=== PATIENT | female | born 1960 | race Caucasian/White ===

== ENCOUNTER 2017-02-15 15:58 | Emergency (ER) | payer OTHER ==
[2017-02-15 16:38] VITALS: BP 116/73
--- NOTE | 2017-02-15 17:18 | UC ---
Shine King Anna, scribed for David Turner MD on 02/15/17 at 1713 . Ear Complaint HPI - HPI Summary HPI Summary: Patient is a 56 y/o [place] [facility] [place] with intermittent left ear pain that began four days ago. Her left ear usually feels more plugged than her right at baseline. She has had some rhinorrhea and congestion. Denies recent cough. The ear pain is exacerbated by self-palpation. She has not been swimming lately, but she takes a shower daily. Patient medications were reviewed this visit. She takes no home medications. - History of Current Complaint Chief Complaint: UCEar Stated Complaint: EAR PAIN Time Seen by Provider: 02/15/17 17:05 Hx Obtained From: Patient Onset/Duration: Lasting Days, Still Present Severity Initially: Moderate Severity Currently: Moderate - Allergies/Home Medications Allergies/Adverse Reactions: Allergies Allergy/AdvReac Type Severity Reaction Status Date / Time Sulfa Antibiotics Allergy Intermediate Rash And Verified 02/26/14 11:25 Itching PMH/Surg Hx/FS Hx/Imm Hx Previously Healthy: Yes Other Cardiovascular History: Denies HTN, PA Cancer History: Other Other Cancer History: Skin CA - Surgical History Surgical History: Yes Surgery Procedure, Year, and Place: hysterectomy. malignant skin ca removed - Social History Alcohol Use: Rare Substance Use Type: None Smoking Status (MU): Former Smoker Review of Systems Constitutional: Negative Skin: Negative Eyes: Negative ENT: Ear Ache, Nasal Discharge, Other - congestion Respiratory: Negative Cardiovascular: Negative Gastrointestinal: Negative Genitourinary: Negative Motor: Negative Neurovascular: Negative Musculoskeletal: Negative Neurological: Negative Psychological: Negative All Other Systems Reviewed And Are Negative: Yes Physical Exam Triage Information Reviewed: Yes Appearance: Well-Appearing, No Pain Distress Vital Signs: Initial Vital Signs Temp 98.6 F 02/15/17 16:35 Pulse 76 02/15/17 16:35 Resp 18 02/15/17 16:35 BP 116/73 02/15/17 16:35 Pulse Ox 100 02/15/17 16:35 Vital Signs Reviewed: Yes Eye Exam: Normal - EOMI, GEORGE ENT: Positive: Pharynx normal - Posterior pharynx benign., Other: - Left TM distorted. Ear canal normal.. Negative: TM red Neck: Positive: Supple, Nontender Respiratory: Positive: Lungs clear, Normal breath sounds, No respiratory distress Cardiovascular: Positive: RRR Musculoskeletal Exam: Normal Musculoskeletal: Positive: Strength Intact, ROM Intact Neurological Exam: Normal - sensory/motor intact, A&O x3 Psychological Exam: Normal - affect/mood appropriate Skin Exam: Normal - wam, dry, skin color displays adequate perfusion Ear Complaint Course/Dx - Differential Dx/Diagnosis Provider Diagnoses: LEFT EAR PAIN WITH SEROUS OTITIS MEDIA AND SINUSITIS. Discharge - Discharge Plan Condition: Stable Disposition: HOME Prescriptions: Amoxicillin/Clavulanate TAB* [Augmentin TAB 875*] 875 mg PO BID #20 tab Patient Education Materials: Serous Otitis Media (ED), Sinusitis (ED) Referrals: Debbie Kessler MD [Primary Care Provider] - Additional Instructions: FOLLOW UP WITH YOUR DOCTOR. RETURN TO THE EMERGENCY DEPARTMENT FOR ANY WORSENING OF YOUR CONDITION OR QUESTIONS OR CONCERNS. The documentation as recorded by the Shine walton Anna accurately reflects the service I personally performed and the decisions made by me, David Turner MD.
== END 2017-02-15 17:31 | disposition home or self-care (01) ==
LOC: UCEAST 15:58
DX: J32.9 Chronic sinusitis, unspecified (principal); H65.92 Unspecified nonsuppurative otitis media, left ear; Z88.3 Allergy status to other anti-infective agents; Z87.891 Personal history of nicotine dependence
CPT/HCPCS: 99212; G0463

== ENCOUNTER 2019-02-16 12:59 | Emergency (ER) | payer OTHER ==
[2019-02-16 13:10] VITALS: BP 134/74
--- NOTE | 2019-02-16 13:25 | UC ---
Throat Pain/Nasal Bruno HPI - HPI Summary HPI Summary: This patient is a 58-year-old female who presents to the urgent care with chief complaint of having sore throat and dysphonia since this morning. Patient denies any difficulty swallowing, denies any swelling of the tongue or lips, and denies any airway compromise. She also reports that she has a dry cough. Denies any fevers or chills. She has no other complaints. - History of Current Complaint Chief Complaint: UCRespiratory Stated Complaint: SORE THROAT Time Seen by Provider: 02/16/19 13:14 Hx Obtained From: Patient Onset/Duration: Gradual Onset Severity: Moderate Pain Intensity: 4 - Allergies/Home Medications Allergies/Adverse Reactions: Allergies Allergy/AdvReac Type Severity Reaction Status Date / Time Sulfa (Sulfonamide Allergy Rash And Verified 02/16/19 13:11 Antibiotics) Itching Home Medications: Home Medications Aspirin/Acetaminophen/Caffeine [Excedrin Extra Strength Caplet] 2 tab PO ONCE PRN 02/16/19 [History Confirmed 02/16/19] PMH/Surg Hx/FS Hx/Imm Hx Previously Healthy: Yes - Surgical History Surgical History: Yes Surgery Procedure, Year, and Place: hysterectomy. malignant skin ca removed - Family History Known Family History: Positive: Non-Contributory - Social History Alcohol Use: Rare Substance Use Type: None Smoking Status (MU): Former Smoker Review of Systems All Other Systems Reviewed And Are Negative: Yes Constitutional: Positive: Negative Skin: Positive: Negative Eyes: Positive: Negative ENT: Positive: Sore Throat Respiratory: Positive: Negative Cardiovascular: Positive: Negative Gastrointestinal: Positive: Negative Genitourinary: Positive: Negative Motor: Positive: Negative Neurovascular: Positive: Negative Musculoskeletal: Positive: Negative Neurological: Positive: Negative Psychological: Positive: Negative Is Patient Immunocompromised?: No Physical Exam - Summary Physical Exam Summary: Vital signs: Reviewed Gen.: Patient is a well developed and nourished female in no acute distress. Patient is sitting comfortably on the stretcher. Head: Normacephalic and atraumatic Eyes: PERRLA, EOMI x2. Ears: Right ear canal and TM WNL Left ear canal and TM WNL Nose Nose with dry mucosa and clear discharge. No sinus tenderness and mouth: Positive pharyngeal erythema with no exudate. Neck: Supple, No lymphadenopathy. No JVD Lungs: CTA B/L CVS: S1 & S2 present. No murmurs appreciated. ABDOMEN: Soft NT w/ positive BS. EXT: FROM x 4 NEURO: A+O X 3. Triage Information Reviewed: Yes Appearance: Well-Appearing, No Pain Distress, Well-Nourished Vital Signs: Initial Vital Signs Temp 98.3 F 02/16/19 13:06 Pulse 72 02/16/19 13:06 Resp 18 02/16/19 13:06 BP 134/74 02/16/19 13:06 Pulse Ox 96 02/16/19 13:06 Throat Pain/Nasal Course/Dx - Course Course Of Treatment: Rapid stress test is negative. Therefore I believe that the patients pharyngitis is secondary to Viral infection. Therefore she was recommended to take ibuprofen and Tylenol for pain or fevers. She was recommended to follow with the primary care physician in the next 2-3 days. Patient understands and agrees. - Differential Dx/Diagnosis Provider Diagnosis: Pharyngitis Discharge - Sign-Out/Discharge Documenting (check all that apply): Patient Departure All imaging exams completed and their final reports reviewed: No Studies - Discharge Plan Condition: Stable Disposition: HOME Prescriptions: Ibuprofen TAB* [Motrin TAB* 600 MG] 600 mg PO Q8H PRN #20 tab PRN Reason: Pain Patient Education Materials: Pharyngitis (ED) Referrals: Debbie Kessler MD [Primary Care Provider] - Additional Instructions: Take Ibuprofen or Tylenol for pain or fever Increase your fluid intake F/U with PCP in the next 2-3 days Return to the if symptoms worsen - Billing Disposition and Condition Condition: STABLE Disposition: Home
== END 2019-02-16 13:40 | disposition home or self-care (01) ==
LOC: UCEAST 12:59
DX: J02.9 Acute pharyngitis, unspecified (principal); Z88.2 Allergy status to sulfonamides; Z87.891 Personal history of nicotine dependence; Z79.82 Long term (current) use of aspirin
CPT/HCPCS: 87651; 99212; G0463

== ENCOUNTER 2019-02-18 10:50 | Emergency (ER) | payer OTHER ==
--- NOTE | 2019-02-18 11:41 | ED ---
Complex/Multi-Sys Presentation - HPI Summary HPI Summary: Patient is a 58 y/o F presenting to ED with complaints of sore throat, productive cough, hoarse voice, and WATKINS. She has been sick for the past week, with sore throat and cough onsetting 02/11. Patient states that she lost voice and went to [facility] care. Strep culture was negative. Patient was prescribed ibuprofen, 600 mg, advised to gargle salt water and drink fluids. Yesterday, 02/17/19 around 1345, she had a "bad coughing fit". Patient states she inhaled strongly through her nose and experienced sudden onset of a right-sided WATKINS that is characterized as throbbing. WATKINS spread, bi-frontal to occipital area. However, right frontal area WATKINS is noted to be more severe. Pain waxes and wanes in intensity. Patient took ibuprofen at 1530 02/17/19 after WATKINS onset, which reduced pain temporarily. No dizziness, no confusion is reported. No visual changes, no weakness is reported. Fever denied, but patient endorses hot flashes. Patient also took ibuprofen at 0800 yesterday, 02/17/19. When she went to sleep last night 02/17/19, patient took half dose of Nyquil with minimal relief. Patient took 3 Excedrin this morning, 02/18/19, around 0615, with some relief. No other medications taken since. Coughing is noted to aggravate Sx. Patient notes a recent coughing fit at 1030 today, 02/18/19. Cough productive of green sputum. Clear nasal discharge is endorsed. This morning, cough has not been productive. Hx of sinusitis, "chronic congestion" per patient. No PSHx of sinus surgery. Recent sick contacts in her home are noted, patient states that she had visitors from [facility] in her home who were sick. Leaning forward, lying back is noted to aggravate WATKINS. Hx of chronic neck pain is reported. Patient had seen a chiropractor on 02/15/19, states that the chiropractor had manipulated her neck during this appointment. She did not have a flu shot this season. In the room, she rates WATKINS pain 8/10 but notes pain waxes and wanes. PSHx of melanoma removal 6-8 years ago, hysterectomy 11 years ago. No FMHx of stroke; however, FMHx of melanoma in father is endorsed. No PMHx of thyroid disease, HTN, diabetes is reported. Patient denies any daily medications except for vitamins. Home medications and allergies are reviewed. Female friend is present in the room with patient. Provider in room at 1129. Allergies Allergy/AdvReac Type Severity Reaction Status Date / Time Sulfa (Sulfonamide Allergy Rash And Verified 02/18/19 11:07 Antibiotics) Itching - History Of Current Complaint Chief Complaint: EDHeadache Hx Obtained From: Patient Onset/Duration: Lasting Days - WATKINS onset 02/17/19, hoarse voice 02/16/19, sore throat and cough 02/11/19, Still Present Timing: Constant, Days - WATKINS onset 02/17/19, hoarse voice 02/16/19, sore throat and cough 02/11/19 Severity Currently: Severe Location: Pain At: - head Character: Throbbing - WATKINS Aggravating Factor(s): coughing, leaning forward, lying back Associated Signs And Symptoms: Positive: Headache, Cough, Other - POSITIVE - HOARSE VOICE, HOT FLASHES, NASAL DISCHARGE; NEGATIVE - VISUAL CHANGES. Negative : Confusion, Dizziness, Weakness, Fever - Allergies/Home Medications Allergies/Adverse Reactions: Allergies Allergy/AdvReac Type Severity Reaction Status Date / Time Sulfa (Sulfonamide Allergy Rash And Verified 02/18/19 11:07 Antibiotics) Itching PMH/Surg Hx/FS Hx/Imm Hx Endocrine/Hematology History: Denies: Hx Diabetes, Hx Thyroid Disease Cardiovascular History: Denies: Hx Hypertension EENT History: Reports: Pharyngitis, Other - Hx of sinusitis - Cancer History Cancer Type, Location and Year: skin ca - removed - Surgical History Surgery Procedure, Year, and Place: hysterectomy. malignant skin ca removed Infectious Disease History: No Infectious Disease History: Reports: Hx Shingles Denies: Hx Clostridium Difficile, Hx Hepatitis, Hx Human Immunodeficiency Virus (HIV), Hx of Known/Suspected MRSA, Hx Tuberculosis, Hx Known/Suspected VRE , Hx Known/Suspected VRSA, History Other Infectious Disease, Traveled Outside the [place] in Last 30 Days - Family History Known Family History: Positive: Other - FMHx of melanoma in father; FMHx of stroke is denied - Social History Alcohol Use: Rare Substance Use Type: Reports: None Smoking Status (MU): Former Smoker Review of Systems Constitutional: Other - POSITIVE - HOT FLASHES Negative: Fever Eyes: Other - NEGATIVE - VISUAL CHANGES ENT: Other - POSITIVE - HOARSE VOICE Positive: Sore Throat Positive: Cough Neurological: Other - NEGATIVE - CONFUSION, DIZZINESS Positive: Headache. Negative: Weakness All Other Systems Reviewed And Are Negative: Yes Physical Exam - Summary Physical Exam Summary: Appearance: Ill-appearing, severe pain distress, well-nourished Skin: Warm, color reflects adequate perfusion, dry; posterior melanoma scar noted Head: Normal Head/Face inspection, atraumatic Eyes: Conjunctiva clear ENT: Bi-frontal and maxillary sinus tenderness, TMs clear, no tonsilar swelling Neck: Supple, no nodes, no JVD Respiratory: Lungs clear, normal breath sounds, no respiratory distress Cardio: RRR, No murmur, pulses normal, brisk capillary refill Abdomen: Soft, nontender Bowel sounds: Present Musculoskeletal: Strength Intact/ROM intact, no calf tenderness, no edema. Superficial varicosities of lower extremities, pain with flexion of neck Psychological: Normal Neuro: A&O x3, CN II-XII intact, motor function 5/5, sensation intact, cerebellar normal, GCS 15, NIH 0. No meningismus. Triage Information Reviewed: Yes Vital Signs On Initial Exam: Initial Vitals Temp Pulse Resp BP Pulse Ox 97.3 F 86 16 170/83 95 02/18/19 11:00 02/18/19 11:00 02/18/19 11:00 02/18/19 11:00 02/18/19 11:00 Vital Signs Reviewed: Yes - Leonardo Coma Scale Best Eye Response: 4 - Spontaneous Best Motor Response: 6 - Obeys Commands Best Verbal Response: 5 - Oriented Coma Scale Total: 15 Procedures - Lumbar Puncture lumbar puncture Position: Lateral Decubitus - left Aseptic Technique: Local Anesthesia, Lidocaine Anesthesia Used: 1.0% Lido Spinal Needle Used: 22 Gauge - [place] Lumbar Puncture Note: Informed consent was obtained with Vitaly Khan RN and friend Audrey as witness. Indication, eval for subarachnoid hemorrhage in pt with sudden onset right frontal headache that has persisted after coughing spell. All of pt's questions answered to the best of my ability. Time out performed. Pt was prepped and draped in sterile fashion. 1% local lidocaine was used for local anesthesia. L4-5 interspace was entered with pt in left lateral decubitus position. Three attempts were made without success. Dr. Vincent, anesthesia, was consulted for additional attempts. Diagnostics - Vital Signs Vital Signs Temp Pulse Resp BP Pulse Ox 02/18/19 11:00 97.3 F 86 16 170/83 95 - Laboratory Result Diagrams: 02/18/19 12:50 02/18/19 12:50 Lab Statement: Any lab studies that have been ordered have been reviewed, and results considered in the medical decision making process. - Radiology CHEST X-RAY Radiology Interpretation Completed By: Radiologist Summary of Radiographic Findings: CXR IMPRESSION: No radiographic evidence for acute cardiopulmonary abnormality on this portable chest x-ray. THIS REPORT WAS REVIEWED BY DR. RAMSEY - CT BRAIN CT CT Interpretation Completed By: Radiologist Summary of CT Findings: BRAIN CT IMPRESSION: 1. Normal brain. 2. No CT evidence of paranasal sinus mucosal disease. 3. Degenerative changes of the cervical spine, most conspicuously C5-C7, without signs of. acute fracture or dislocation. Superior characterization of degenerative changes and soft. tissue structures can be made with a nonemergent MRI of the cervical spine if it will. influence clinical management. THIS REPORT WAS REVIEWED BY DR. RAMSEY. CERVICAL SPINE CT CT Interpretation Completed By: Radiologist Summary of CT Findings: CERVICAL SPINE CT IMPRESSION: 1. Normal brain. 2. No CT evidence of paranasal sinus mucosal disease. 3. Degenerative changes of the cervical spine, most conspicuously C5-C7, without signs of. acute fracture or dislocation. Superior characterization of degenerative changes and soft. tissue structures can be made with a nonemergent MRI of the cervical spine if it will. influence clinical management. THIS REPORT WAS REVIEWED BY DR. RAMSEY. SINUS CT CT Interpretation Completed By: Radiologist Summary of CT Findings: SINUS CT IMPRESSION: 1. Normal brain. 2. No CT evidence of paranasal sinus mucosal disease. 3. Degenerative changes of the cervical spine, most conspicuously C5-C7, without signs of. acute fracture or dislocation. Superior characterization of degenerative changes and soft. tissue structures can be made with a nonemergent MRI of the cervical spine if it will. influence clinical management. THIS REPORT WAS REVIEWED BY DR. RAMSEY. CTA HEAD/NECK CT Interpretation Completed By: Radiologist Summary of CT Findings: CTA HEAD/NECK IMPRESSION: Normal CT angiography of the head and neck. THIS REPORT WAS REVIEWED BY DR. RAMSEY. National Institutes Of Health - NIH Scale Level of Consciousness: Alert/Keenly Responsive Ask Patient the Month and His/Her Age: Both Correct Ask Pt to Open/Close Eyes and Phytopathologist/Release Non-Paretic Hand: Both Correctly Best Gaze (Only Horizontal Eye Movement): Normal Visual Field Testing: No Visual Loss Facial Paresis-Pt to Smile & Close Eyes or Grimace Symmetry: Normal/Symmetrical Motor Function - Right Arm: No Drift-Holds 10 Seconds Motor Function - Left Arm: No Drift-Holds 10 Seconds Motor Function - Right Leg: No Drift-Holds 10 Seconds Motor Function - Left Leg: No Drift-Holds 10 Seconds Limb Ataxia-Must be out of Proportion to Weakness Present: Absent Sensory (Use Pinprick to Test Arms/Legs/Trunk/Face): Normal Best Language (Describe Picture, Name Items): No Aphasia Dysarthria (Read Several Words): Normal Extinction and Inattention: No Abnormality Total Score: 0 Re-Evaluation - Re-Evaluation First Eval Re-Evaluation Time: 12:28 Comment: Discussed with Kira from CT to do thin cuts through the brain. Second Eval Re-Evaluation Time: 13:12 Comment: Informed patient that CT scans are pending. Pain is rated 8/10 at present. She is agreeable with pain medications IV. Third Eval Re-Evaluation Time: 13:46 Comment: Patient informed of CT results, discussed spinal tap, patient signed consent of procedure. Fourth Eval Re-Evaluation Time: 15:04 Comment: Spinal tap attempt unsuccessful, anesthesia to be contacted. Fifth Eval Re-Evaluation Time: 17:23 Change: Improved Comment: Patient is sitting upright and reports improvement of WATKINS. CXR to be ordered to evaluate patient's cough. Sixth + Eval Re-Evaluation Time: 19:21 Comment: Discussed results of spinal tap, which was negative. WATKINS is still present. More pain medicaiton to be given along with prescription. Patient to be discharged to home with PCP follow up. Strict return precautions given. Patient is agreeable with this. Complex Multi-Symp Course/Dx Course Of Treatment: Patient is a 58 y/o F presenting to ED with complaints of sore throat, productive cough, hoarse voice, and WATKINS. She has been sick for the past week, with sore throat and cough onsetting 02/11. Patient states that she lost voice 02/16/19 [facility] Strep culture was negative. Patient was prescribed ibuprofen, 600 mg, advised to gargle salt water and drink fluids. Yesterday, 02/17/19 around 1345, she had a "bad coughing fit". Patient states she inhaled strongly through her nose and experienced sudden onset of a right-sided WATKINS that is characterized as throbbing. WATKINS spread, bi- frontal to occipital area. However, right frontal area WATKINS is noted to be more severe. Pain waxes and wanes in intensity. Patient took ibuprofen at 1530 after WATKINS onset, which reduced pain temporarily. No dizziness, no confusion is reported. No visual changes, no weakness is reported. Fever denied, but patient endorses hot flashes. Patient also took ibuprofen at 0800 yesterday, 02/17. When she went to sleep last night 02/17/19, patient took half dose of Nyquil with minimal relief. Patient took 3 Excedrin this morning, 02/18/19, around 0615, with some relief. No other medications taken since. Coughing is noted to aggravate Sx. Patient notes a recent coughing fit at 1030 today, 02/18/19. Cough productive of green sputum. Clear nasal discharge is endorsed. This morning, cough has not been productive. Hx of sinusitis, "chronic congestion" per patient. No PSHx of sinus surgery. Recent sick contacts in her home are noted, patient states that she had visitors from [facility] in her home who were sick. Leaning forward, lying back is noted to aggravate WATKINS. Hx of chronic neck pain is reported. Patient had seen a chiropractor on 02/15/19, states that the chiropractor had manipulated her neck during this appointment. She did not have a flu shot this season. In the room, she rates WATKINS pain 8/10 but notes pain waxes and wanes. PSHx of melanoma removal 6-8 years ago, hysterectomy 11 years ago. No FMHx of stroke; however, FMHx of melanoma in father is endorsed. No PMHx of thyroid disease, HTN, diabetes is reported. Patient denies any daily medications. On physical exam, severe pain distress, ill-appearance is noted. GCS 15, NIH 0, no meningismus but pain with flexion of the neck. Bi-frontal and maxillary sinus tenderness. No tonsillary swelling, TMs clear. Posterior melanoma scar, superficial varicosities at lower legs. BRAIN CT, CERVICAL SPINE CT, SINUS CT IMPRESSIONS: 1. Normal brain. 2. No CT evidence of paranasal sinus mucosal disease. 3. Degenerative changes of the cervical spine , most conspicuously C5-C7, without signs of. acute fracture or dislocation. Superior characterization of degenerative changes and soft. tissue structures can be made with a nonemergent MRI of the cervical spine if it will. influence clinical management. Patient informed of CT results, discussed spinal tap, patient signed consent of procedure. Lumbar puncture was attempted but unsuccessful. 1511 - Patient's case was discussed with Dr. Vincent, Dr. Vincent will come to ED to assist with patient, but asks for CTA Head first. 162 - Dr. Bustos states CTA Head is negative. 1736 - Dr. Carlos Monreal ended up coming into ED to perform lumbar puncture instead of Dr. Vincent. Patient's case discussed. 1826 - Dr. Monreal reports successful lumbar puncture. Labs showed MPV 6.7, sodium 133, chloride 98, BUN/creatinine ratio 26.4, glucose 113 , lactic acid 0.8. UA showed blood 1+, RBC 1+, squamous epith cells present, ascorbic acid present. Tox screen was negative. Group A strep rapid was negative. CSF fluid was normal. CXR IMPRESSION: No radiographic evidence for acute cardiopulmonary abnormality on this portable chest x-ray. Discussed results of spinal tap, which was negative. WATKINS is still present. More pain medicaiton to be given along with prescription. Patient to be discharged to home with PCP follow up. Strict return precautions given. Patient is agreeable with this. During ED course, patient received morphine 4 mg IV x2. - Diagnoses Provider Diagnoses: Headache, Viral syndrome - Physician Notifications Discussed Care Of Patient With: Breanne Vincent Time Discussed With Above Provider: 15:04 Instructed by Provider To: Other - 1511 - Patient's case was discussed with Dr. Vincent, Dr. Vincent will come to ED to assist with patient, but asks for CTA Head first. 162 - Dr. Bustos states CTA Head is negative. 173 - Dr. Carlos Monreal ended up coming into ED to perform lumbar puncture instead of Dr. Vincent. Patient's case discussed. 1827 - Dr. Monreal reports successful lumbar puncture. Discharge - Sign-Out/Discharge Documenting (check all that apply): Patient Departure - discharge Patient Received Moderate/Deep Sedation with Procedure: No - Discharge Plan Condition: Stable Disposition: HOME Prescriptions: oxyCODONE/Acetamin 5/325 MG* [Percocet 5/325 TAB*] 1 tab PO Q6H PRN #12 tab MDD 4 PRN Reason: Severe Pain Patient Education Materials: Acute Headache (ED), Viral Syndrome (ED), Lumbar Puncture (ED) Forms: *Work Release Referrals: Debbie Kessler MD [Primary Care Provider] - 2 Days Additional Instructions: We were concerned for a possible subarachnoid hemorrhage in your brain today with the quality of your headache. We did a CT brain, a CTA brain and a lumbar puncture (spinal tap) which did not show any bleeding. We also did a dedicated CT of your sinuses, and did not see infection in your sinuses either. There is no evidence of meningitis as well. The rapid strep test was negative also. And the chest xray was negative. So we do not have a definite cause of your headache today, but we do not believe it is an emergency condition, and may just be part of a viral syndrome. You may continue to take acetaminophen ( preferable to ibuprofen because ibuprofen has slightly higher chance of bleeding.) You were also given a prescription for some oxycodone that you may use for severe pain. In the ER you were given morphine 4mg IV x 3 for your pain , and you were dispensed 4 oxycodone. Remember if your headache worsens, you may have a "post lumbar puncture headache", and this can be treated by anesthesia with a "blood patch". See Dr. Torres, or return to the ER if you think you have a worsening headache, or any new or worsening symptoms. - Attestation Statements Document Initiated by Scribe: Yes Documenting Scribe: NEEL MONAHAN Provider For Whom Manolo is Documenting (Include Credential): GARTH RAMSEY MD Scribe Attestation: NEEL King, scribed for GARTH RAMSEY MD on 02/18/19 at 1955. Status of Scribe Document: Ready
[2019-02-18 12:21] LABS: Rapid Strep Molecular Negative (Negative)
[2019-02-18 12:40] LABS: Urine Appearance Clear; Urine Bacteria Absent (Absent); Urine Bilirubin Negative (Negative); Urine Blood 1+ (Negative); Urine Color Straw; Urine Glucose Negative (Negative); Urine Ketones Negative (Negative); Urine Nitrite Negative (Negative); Urine Protein Negative (Negative); Urine Red Blood Cell 1+(3-5/hpf) (Absent); Urine Specific Gravity 1.009 (1.010-1.030); Urine Squamous Epithelial Cell Present (Absent); Urine Urobilinogen Negative (Negative); Urine White Blood Cell Absent (Absent)
[2019-02-18 12:55] LABS: Urine Benzodiazepine Screen None Detected (None Detect); Urine Opiates Screen None Detected (None Detect)
[2019-02-18 12:58] LABS: ABS Lymphocytes 1.9 10^3/ul (1.0-4.8); ABS Monocytes 0.4 10^3/ul (0-0.8); ABS Neutrophils 4.2 10^3/ul (1.5-7.7); Eosinophil % 0.5 %; Hematocrit 35 % (35-47); Lymphocyte % 28.9 %; Mean Corpuscular HGB Conc 34 g/dL (31-36); Mean Corpuscular Hemoglobin 31 pg (27-31); Mean Corpuscular Volume 92 fL (80-97); Mean Platelet Volume 6.7 fL (7.4-10.4); Nucleated Red Blood Cells % 0.2; Platelet Count 262 10^3/uL (150-450); Red Blood Count 3.84 10^6 /uL (3.70-4.87); Red Cell Distribution Width 13 % (10.5-15); White Blood Count 6.5 10^3/uL (3.5-10.8)
[2019-02-18 13:06] LABS: Activated Partial Thrombo Time 32.8 seconds (26.0-38.0); INR 0.91 (0.82-1.09)
[2019-02-18 13:15] LABS: Albumin 4.5 g/dL (3.2-5.2); Albumin/Globulin Ratio 1.6 (1-3); BUN/Creatinine Ratio 26.4 (8-20); Calcium 10.2 mg/dL (8.6-10.3); EGFR African American 100.7 (>60); EGFR Non-African American 83.2 (>60); Globulin 2.9 g/dL (2-4); Potassium 4.8 mmol/L (3.5-5.0); Total Bilirubin 0.3 mg/dL (0.2-1.0); Total Protein 7.4 g/dL (6.4-8.9)
[2019-02-18] MEDS ORDERED: Morphine 4 MG/ML VIAL (1 ml) 4 MG/ML VIAL IV ONE ×3 (13:41→19:43)
[2019-02-18 13:59] LABS: Erythrocyte Sed Rate 22 mm/Hr (0-29)
[2019-02-18] MEDS ORDERED: Iohexol 350* (CONTRAST) 500 ML MDV IV ONE (15:23)
--- NOTE | 2019-02-18 18:24 | PN ---
Progress Note - Progress Note Date of Service: 02/18/19 - Anesthesia Note: Asked to perform diagnostic lumbar puncture to r/o subarachnoid bleed. Patient had negative w/u including CTA, CT. Labs and chart reviewed, case discussed with Dr. Condon. Patient in sitting position, chloroprep x2 to dry. L3-4 ID. LP with 25 g pencan needle, patient had temporary parasthesia to leg, 2 cc x4 taken. Fluid appears clear. No problems encountered. VSS. Care transferred back to ED staff. ED nurse Vitaly present during procedure and care of specimens transferred to him. Dr. Carlos Lobo.
[2019-02-18 18:37] LABS: Body Fluid Source Cerebral Spinal
[2019-02-18 19:18] LABS: CSF Glucose 63 mg/dL (40-70)
[2019-02-18 20:15] VITALS: BP 141/92
== END 2019-02-18 20:15 | disposition home or self-care (01) ==
LOC: ED 10:50
DX: R51 Headache (principal); B34.9 Viral infection, unspecified; M50.323 Other cervical disc degeneration at C6-C7 level; Z88.2 Allergy status to sulfonamides; Z87.891 Personal history of nicotine dependence
CPT/HCPCS: 36415; 62270; 70450; 70486; 70496; 70498; 71045; 72125; 80053; 80307; 81003; 81015; 82945; 83605; 84157; 85025; 85610; 85652; 85730; 87070; 87205; 87651; 89051; 96374; 96376; 99284; J2270; Q9967